=== PATIENT | female | born 1950 | race Caucasian/White ===

== ENCOUNTER → 2018-09-17 12:33 | Outpatient (CLI) | payer OTHER, SELFPAY ==
--- NOTE | 2018-09-17 | DI.RAD.S_ITS ---
PROCEDURE: FL WRIST INJECTION MR/CT LT INDICATIONS: OTHER DISLOCATION OF LEFT WRIST AND HAND TECHNIQUE: After informed consent had been obtained, the wrist was examined fluoroscopically, and a site chosen for injection of the radiocarpal compartment from a dorsal approach. Skin was prepped and draped in a sterile fashion and 1% lidocaine infiltrated from the skin down to the articular surface. A hypodermic needle was then introduced into the articular space and a modest amount of contrast medium was instilled confirming intra-articular needle tip placement. This was followed by approximately 4 mL of a dilute gadolinium solution. Needle was removed and dressing was applied. The patient experienced no complications throughout the procedure and left the fluoroscopic suite in no apparent distress. FINDINGS: A single fluoroscopic spot image demonstrates intra-articular location to injected iodinated contrast. IMPRESSION: Successful fluoroscopic-guided administration of dilute Gadolinium solution for wrist MR arthrogram. Dictated by: Cristian Monteiro M.D. on 09/17/2018 at 13:54 Approved by: Cristian Monteiro M.D. on 09/17/2018 at 13:55
--- NOTE | 2018-09-17 | DI.MRI.S_ITS ---
PROCEDURE: MR WRIST LT W CON INDICATIONS: Left wrist sprain. TECHNIQUE: After the administration of 3-4 mL of dilute intra-articular Gadolinium contrast into the radiocarpal compartment, coronal T1 spin echo with fat saturation and T2 fast spin echo with fat saturation, axial T1 spin echo and T2 fast spin echo with fat saturation, sagittal T1 spin echo with and without fat saturation through the wrist. COMPARISON: [facility], , WRIST MINIMUM 3 VIEWS LEFT, 03/05/2014, 10:16. FINDINGS: Image quality: There is mild motion artifact. Bones and cartilage: The carpal bones are normally aligned. No bone marrow contusions or fractures. No evidence for avascular necrosis. There are [id number] degenerative changes within the carpus with cartilage degeneration and scattered foci of subchondral edema including along the lunatocapitate articulation and triscaphe articulation. Carpal ligaments: The scapholunate ligament demonstrates degenerative partial tearing primarily involving the membranous component with gadolinium extravasation into the mid-carpal compartment. The lunotriquetral ligament demonstrates mild degenerative signal but appears grossly intact. The radioscaphocapitate and radiolunotriquetral ligaments appear grossly intact. The dorsal intercarpal and radiotriquetral ligaments appear intact. On sagittal images, the pisohamate ligament appears intact. Triangular fibrocartilage complex: The triangular fibrocartilage disc demonstrates degenerative signal with a small perforation adjacent to its radial attachment. Its styloid attachment is attenuated compatible with degenerative tearing. The foveal lamina also demonstrates degenerative signal. There is a small amount of gadolinium extravasation into the distal radioulnar joint. The adjacent meniscal homolog demonstrates degenerative change. The ulnar collateral ligament appears intact. The extensor carpi ulnaris tendon is normal in morphology with slight ulnar-sided deviation likely due to positioning. Tendons and soft tissues: The carpal tunnel structures appear normal, including the median nerve. There is a small amount of fluid and minimal edema within the carpal tunnel. The ulnar nerve appears normal within Guyon's canal. All six extensor tendon compartments demonstrate normal morphology, without pathologic tendon sheath fluid. There is a small lobulated ganglion cyst extending from the radial volar aspect of the wrist measuring up to approximately 0.8 x 0.6 x 1.3 cm. IMPRESSION: 1. 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 2. Tearing of the triangular fibrocartilage as described including a small perforation adjacent to its radial attachment and degenerative tearing of its styloid attachment. 3. 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 4. Small ganglion cyst along the volar radial aspect of the wrist. 5. Minimal amount of nonspecific fluid and edema within the carpal tunnel. Recommend correlation with clinical symptoms. Dictated by: Rajan Lawler M.D. on 09/17/2018 at 16:10 Approved by: Rajan Lawler M.D. on 09/17/2018 at 16:23
== END ==
PROVIDERS: Family Provider Nurse Practitioner; PCP Nurse Practitioner; Visit Provider Orthopaedic Surgery
DX: S63.592A Other specified sprain of left wrist, initial encounter (principal); M19.032 Primary osteoarthritis, left wrist; M67.432 Ganglion, left wrist
CPT/HCPCS: 20605; 73222; 76000